=== PATIENT | female | born 1970 | race Caucasian/White ===

== ENCOUNTER → 2021-06-01 | Outpatient (CLI) | payer BC | LOC: LAB SHORT 17:33 → LAB 17:33 | DX: N39.0 Urinary tract infection, site not specified (principal) | CPT/HCPCS: 87077; 87086; 87186 ==

== ENCOUNTER → 2021-08-16 | Outpatient (CLI) | payer BC ==
[2021-08-18 09:10] LABS: HPV 16 Negative (Negative); HPV 18 Negative (Negative); HPV OTHER HR TYPES Negative (Negative)
== END | disposition home or self-care (01) ==
LOC: LAB SHORT 17:46
PROVIDERS: Nurse Practitioner Family
DX: Z01.419 Encounter for gynecological examination (general) (routine) without abnormal findings (principal)
CPT/HCPCS: 87624; G0145

== ENCOUNTER 2023-07-01 09:02 | Inpatient (IN) | payer BC ==
[~2023-07-01] VITALS: Ht 182.9 cm; Wt 119.0 kg
[2023-07-01 09:41] LABS: BASOPHILS ABSOLUTE AUTO 0.03 K/mm3 (0.00-0.23); BASOPHILS PERCENT AUTO 0 % (0-2); EOSINOPHILS PERCENT AUTO 2 % (0-6); Hematocrit 39.7 % (33.0-51.0); Hemoglobin 13.6 g/dL (11.5-16.0); IMMATURE GRAN ABSOLUTE AUTO 0.02 K/mm3 (0.00-0.10); IMMATURE GRAN PERCENT AUTO 0 % (0-1); LYMPHOCYTES ABSOLUTE AUTO 1.64 K/mm3 (0.84-5.20); LYMPHOCYTES PERCENT AUTO 24 % (21-46); MONOCYTES ABSOLUTE AUTO 0.45 K/mm3 (0.16-1.47); MONOCYTES PERCENT AUTO 7 % (4-13); Mean Corpuscular HGB 29.3 pg (26.0-34.0); Mean Corpuscular HGB Conc 34.3 g/dL (31.5-36.5); Mean Corpuscular Volume 86 fL (80-100); NEUTROPHILS ABSOLUTE AUTO 4.62 K/mm3 (1.96-9.15); NEUTROPHILS PERCENT AUTO 67 % (41-73); Platelet Count 187 K/mm3 (150-400); RDW Coefficient Variation 12.1 % (11.7-14.2); RDW Standard Deviation 37.9 fL (35.1-46.3); Red Blood Cell Count 4.64 M/mm3 (3.80-5.20); White Blood Cell Count 6.86 K/mm3 (4.00-11.30)
[2023-07-01] MEDS ORDERED: METFORMIN HCL500 M2 PO (09:43)
[2023-07-01] MEDS ORDERED: LOSARTAN POTASS25 M2 PO (09:43)
[2023-07-01 10:04] LABS: Albumin, Blood 3.2 g/dL (3.4-5.0); Albumin/Globulin Ratio 0.8 (0.8-1.8); Bilirubin, Total 0.4 mg/dL (0.1-1.0); Bun/Creatinine Ratio 15.8 (12.0-20.0); Calcium, Blood 8.5 mg/dL (8.5-10.1); Creatinine, Blood 0.57 mg/dL (0.40-1.00); Globulin, Blood 4.2 g/dL (2.2-4.0); Potassium, Blood 3.8 mmol/L (3.5-5.5); Total Protein, Blood 7.4 g/dL (6.4-8.2)
[2023-07-01 14:45] VITALS: BP 155/101
--- NOTE | 2023-07-01 14:50 | NUR ---
Pt arrived to 362 via gurney from ED, she is ambulatory and transfers to bed indep, a/ox4, pleasant and coopertive with care, follows commands well, denies pain, reports her left arm just feels somewhat numb, denies any other symtoms, lungs are clear t/o, on r/a, resp even and unlabored, no cough noted, hrr, tele ordered, no edema noted, ppp+2, cap refill <3sec, vs stable, afebrile, piv to lfa site is clear and patent, btx4, reports reg bm's, voids without diff, skin c/w/d, mathi, dawood, oriented to room layout and call system, call light in reach. recieved call from lab regarding high trop at 430, this was called to Dr. Arriaza, recieved orders to obtain EKG and start heperin gtt, this was done.
[2023-07-01 15:49] LABS: Anti-Xa UFH, PHA Monitoring <0.10 IU/mL; International Normalized Ratio 1.04; Prothrombin Time Results 10.9 Sec (9.7-11.5)
--- NOTE | 2023-07-01 19:29 | NUR ---
pt asymtomatic, states she feels normal now, lab called with critical trop. notified Dr. Arriaza with results, he ordered cardiology consult, this was called in by night RN. will keep pt NPO after mid, continue heperin gtt, no further changes, instructed pt to notify staff immed if any changes occur, she is agreeable. call light in reach.
[2023-07-01 20:11] VITALS: BP 173/99
[2023-07-02] VITALS (10 sets, daily range): BP systolic 132–199; BP diastolic 69–110
--- NOTE | 2023-07-02 00:21 | NUR ---
CRITICAL TROPONIN CRITICAL RESULT OF [id number] CALL TO FRANK TEIXEIRA AT 2330. PATIENT REPORTS NO CHEST PAIN. NO NEW ORDERS.
[2023-07-02 04:22] LABS: BASOPHILS ABSOLUTE AUTO 0.02 K/mm3 (0.00-0.23); BASOPHILS PERCENT AUTO 0 % (0-2); EOSINOPHILS ABSOLUTE AUTO 0.11 K/mm3 (0.00-0.68); EOSINOPHILS PERCENT AUTO 1 % (0-6); Hematocrit 38.3 % (33.0-51.0); Hemoglobin 13.2 g/dL (11.5-16.0); IMMATURE GRAN ABSOLUTE AUTO 0.02 K/mm3 (0.00-0.10); IMMATURE GRAN PERCENT AUTO 0 % (0-1); LYMPHOCYTES PERCENT AUTO 34 % (21-46); MONOCYTES ABSOLUTE AUTO 0.53 K/mm3 (0.16-1.47); MONOCYTES PERCENT AUTO 7 % (4-13); Mean Corpuscular HGB 29.3 pg (26.0-34.0); Mean Corpuscular HGB Conc 34.5 g/dL (31.5-36.5); Mean Corpuscular Volume 85 fL (80-100); Mean Platelet Volume 9.7 fL (9.1-12.4); NEUTROPHILS ABSOLUTE AUTO 4.45 K/mm3 (1.96-9.15); NEUTROPHILS PERCENT AUTO 58 % (41-73); Platelet Count 169 K/mm3 (150-400); RDW Coefficient Variation 12.2 % (11.7-14.2); RDW Standard Deviation 37.6 fL (35.1-46.3); White Blood Cell Count 7.73 K/mm3 (4.00-11.30)
[2023-07-02 04:51] LABS: Alanine Aminotransfer (ALT/SGP 39 U/L (12-78); Albumin/Globulin Ratio 0.8 (0.8-1.8); Alk Phos 73 U/L (50-136); Anion Gap 4 mmol/L (6-16); Aspartate Aminotrans (AST/SGOT 54 U/L (12-37); Bilirubin, Total 0.5 mg/dL (0.1-1.0); Blood Urea Nitrogen 8 mg/dL (8-24); Bun/Creatinine Ratio 13.5 (12.0-20.0); CHOL/HDL RATIO 3.6; CO2, Blood 28 mmol/L (21-32); Calcium, Blood 8.6 mg/dL (8.5-10.1); Chloride, Blood 108 mmol/L (98-108); Cholesterol 175 mg/dL (50-200); Creatinine, Blood 0.59 mg/dL (0.40-1.00); Glomerular Filtration Rate 109 (60-); Glucose, Blood 211 mg/dL (70-99); HDL Cholesterol 48 mg/dL (>39); LDL/HDL RATIO 2.2; Low Density Lipoprotein Chol 104 mg/dL (0-110); Potassium, Blood 3.8 mmol/L (3.5-5.5); Sodium, Blood 140 mmol/L (136-145); Triglycerides 117 mg/dL (30-160); Very Low Density Lipoprot Chol 23 mg/dL (6-32)
--- NOTE | 2023-07-02 05:18 | NUR ---
SHIFT SUMMARY PATIENT ALERT, ORIENTED, AND INDEPENDENT IN ROOM. DENIES CHEST PAIN, NAUSEA, AND SHORTNESS OF BREATH. HEPARIN INFUSING AT 27.3 MLS/HR. STRESS TEST PLANNED FOR TODAY. CARDIOLOGY CONSULT CALLED. PLEASANT AND COOPERATIVE WITH CARE.
--- NOTE | 2023-07-02 11:41 | NUR ---
PATIENT OFF UNIT VIA W/C TO REGISTERED MAIL CLERK AT 0957. HEPARIN GTT TURNED OFF AT 0955, PHARMACY NOTIFIED. TELEPHONE REPORT GIVEN TO DARION MAY IN PCU AT 1050. PATIENT'S BELONGINGS AND MEDICATIONS TAKEN TO PCU 15.
--- NOTE | 2023-07-02 16:59 | NUR ---
SHIFT SUMMARY PT REMAINS ALERT AND ORIENTED. VS STABLE. HR REMAINS NSR. PT HAS DENIED ANY CP SINCE ARRIVAL TO UNIT. PUT ABLE TO GET UP AND AMBULATE IN HER ROOM INDEPENDENTLY. RIGHT RADIAL SITE RECOVERED PER ORDERS WITHOUT ANY COMPLICATIONS. PT FOLLOWING RIGHT ARM RESTRICTIONS. WILL CONTINUE TO MONITOR AND REPORT TO ONCOMING RN
[2023-07-03 04:26] VITALS: BP 139/85
[2023-07-03 05:06] LABS: BASOPHILS ABSOLUTE AUTO 0.03 K/mm3 (0.00-0.23); BASOPHILS PERCENT AUTO 0 % (0-2); EOSINOPHILS ABSOLUTE AUTO 0.13 K/mm3 (0.00-0.68); EOSINOPHILS PERCENT AUTO 2 % (0-6); Hematocrit 36.8 % (33.0-51.0); Hemoglobin 12.5 g/dL (11.5-16.0); IMMATURE GRAN ABSOLUTE AUTO 0.03 K/mm3 (0.00-0.10); IMMATURE GRAN PERCENT AUTO 0 % (0-1); LYMPHOCYTES ABSOLUTE AUTO 2.08 K/mm3 (0.84-5.20); LYMPHOCYTES PERCENT AUTO 30 % (21-46); MONOCYTES PERCENT AUTO 9 % (4-13); Mean Corpuscular HGB 29.1 pg (26.0-34.0); Mean Corpuscular Volume 86 fL (80-100); Mean Platelet Volume 10.2 fL (9.1-12.4); NEUTROPHILS ABSOLUTE AUTO 4.07 K/mm3 (1.96-9.15); NEUTROPHILS PERCENT AUTO 59 % (41-73); Platelet Count 168 K/mm3 (150-400); RDW Coefficient Variation 12.2 % (11.7-14.2); RDW Standard Deviation 38.3 fL (35.1-46.3); Red Blood Cell Count 4.29 M/mm3 (3.80-5.20); White Blood Cell Count 6.94 K/mm3 (4.00-11.30)
[2023-07-03 06:30] LABS: Albumin, Blood 2.9 g/dL (3.4-5.0); Anion Gap 6 mmol/L (6-16); Blood Urea Nitrogen 10 mg/dL (8-24); CO2, Blood 25 mmol/L (21-32); Calcium, Blood 8.6 mg/dL (8.5-10.1); Chloride, Blood 108 mmol/L (98-108); Creatinine, Blood 0.59 mg/dL (0.40-1.00); Glomerular Filtration Rate 109 (60-); Glucose, Blood 179 mg/dL (70-99); Phosphorus, Blood 4.3 mg/dL (2.5-4.9); Potassium, Blood 3.7 mmol/L (3.5-5.5); Sodium, Blood 139 mmol/L (136-145)
--- NOTE | 2023-07-03 06:36 | NUR ---
SHIFT SUMMARY PATIENT ALERT AND ORIENTED X4, INDEPENDENT IN HER ROOM. PATIENT HAS HAD NO COMPLAINTS OF PAIN OR SHORTNESS OF BREATH. R RADIAL SITE FREE OF BRUSING AND BLEEDING, ARM BOARD IN PLACE. PATIENT ON ROOM AIR. VITAL SIGNS STABLE. NO ACUTE ISSUES NOTED OVERNIGHT. WILL CONTINUE TO MONITOR. CALL LIGHT WITHIN REACH.
[2023-07-03 07:50] VITALS: BP 155/90
--- NOTE | 2023-07-03 09:48 | NUR ---
PT A/O X4. DENIES CP. AMBULATORY IN ROOM. DR ALVARENGA AND DR DESHPANDE HAVE BOTH BEEN IN TO SEE PT. PLAN IS TO D/C PT HOME TODAY
[2023-07-03] MEDS ORDERED: ASPI81CH PO (10:22)
[2023-07-03] MEDS ORDERED: METO25ER PO (10:23)
[2023-07-03] MEDS ORDERED: LIPITOR80 MG PO (10:23)
[2023-07-03] MEDS ORDERED: CLOP75 PO (10:23)
[2023-07-03] MEDS ORDERED: NITR.4SL SL (10:24)
--- NOTE | 2023-07-03 10:46 | NUR ---
IV REMOVED AND PRESSURE DRESSED. PT EXPRESSED UNDERSTANDING OF TEACHING AND DENIES FURTHER NEEDS.
== END 2023-07-03 10:43 | disposition home or self-care (01) | DRG 282 ==
LOC: ER 09:02 → MEDS 09:03 → PCU 09:03 → MEDS 09:03 → PCU 07-02 10:08
PROVIDERS: Emergency Medicine; Family Medicine; ADMIT Internal Medicine
PROC: B211YZZ Fluoroscopy of Multiple Coronary Arteries using Other Contrast (ICD-10-PCS; principal; 2023-07-02)
DX: I21.4 Non-ST elevation (NSTEMI) myocardial infarction (principal); E11.9 Type 2 diabetes mellitus without complications; E66.9 Obesity, unspecified; I10 Essential (primary) hypertension; J45.909 Unspecified asthma, uncomplicated; M25.512 Pain in left shoulder; G89.29 Other chronic pain; Z79.899 Other long term (current) drug therapy; Z88.0 Allergy status to penicillin; Z79.84 Long term (current) use of oral hypoglycemic drugs; Z68.33 Body mass index [BMI] 33.0-33.9, adult
CPT/HCPCS: 36415; 71045; 76937; 80053; 80061; 80069; 82947; 83036; 83880; 84484; 85025; 85520; 85610; 85730; 93005; 93010; 93306; 93454; 96374; 96376; 99152; 99153; 99285-25; A9270; C1769; C1887; C1894; G0378; J1644; J2250; J3010; J7030; Q9967